=== PATIENT | female | born 1940 | race Caucasian/White ===

== ENCOUNTER → 2016-06-14 | Day surgery (SDC) | payer MEDICARE, BC ==
[~2016-06-14] VITALS: Ht 162.6 cm; Wt 58.5 kg
[~2016-06-14] MED LIST: HYDROCHLOROTH12.5 MG PO; PAXIL40 M1 PO; TYLENOL WITH C1 EACH PO; VALIUM2 MG PO; VOLTAREN75 MG PO
--- NOTE | ~2016-06-14 | OR ---
PATIENT'S NAME: KRISTAN DIALLO [facility] AGE: 76 Y [address] ROOM: [place] [address] LOCATION: [facility] – [place] ADMIT DATE: 06/14/2016 OR/Procedure Report DISCHARGE DATE: FAMILY PHYSICIAN: LIEN LA MD ATTENDING PHYSICIAN: Cruz Merida V SURGEON: Cruz Merida MD LOCKER OPERATOR: BONIFACIO Fairchild. DATE OF PROCEDURE: 06/14/2016 PREOPERATIVE DIAGNOSIS: Malignant melanoma in situ, left cheek. POSTOPERATIVE DIAGNOSIS: Malignant melanoma in situ, left cheek. OPERATION/PROCEDURE: Excision of 6 x 2 cm malignant melanoma in situ, left cheek, with complex closure. ESTIMATED BLOOD LOSS: Minimal. COMPLICATIONS: None. FINDINGS: Frozen section pathology revealed all margins free of disease. DESCRIPTION OF PROCEDURE: The patient was taken to the operating room, laid in supine position, and underwent general endotracheal anesthesia. Head was rotated to the right. Left face was approached. The patient had previous biopsied melanoma in situ of the left cheek. There were several satellite areas of hyperpigmentation. This was marked for initial excision with probable rotation flap reconstruction, however, there was persistent satellite hyperpigmentation superiorly. It was elected to perform a wide local excision with primary closure. A proposed incision line was marked and infiltrated with 2% lidocaine with epinephrine solution. A 6 x 2.5 cm elliptical skin incision was performed using a #15 blade. Subcutaneous tissues were divided using #15 blade. Specimen was removed, marked, and sent for frozen section pathology. Skin edges were undermined using a #15 blade. Frozen section pathology revealed negative margins. Subcutaneous tissues approximated using interrupted 5-0 Vicryl suture. Skin closure was then performed using interrupted 6-0 Ethilon. The patient tolerated the procedure well. Neosporin was applied. The patient was aroused, extubated, and discharged from the operating room to the recovery room in satisfactory condition. CRUZ MERIDA MD PATIENT'S NAME: KRISTAN DIALLO [facility] AGE: 76 Y [address] ROOM: [place] [address] LOCATION: [facility] [place] ADMIT DATE: 06/14/2016 OR/Procedure Report DISCHARGE DATE: FAMILY PHYSICIAN: LIEN LA MD ATTENDING PHYSICIAN: Cruz Merida/jaidenl /[id number] d: 06/[id number] t: 06/21/16 0721, OPERATIVE SUMMARY
== END | disposition disaster alternative care site (69) ==
LOC: GPOC 06-10 13:00 → GSDC 07:00
PROC: 0HB1XZX Excision of Face Skin, External Approach, Diagnostic (ICD-10-PCS; principal; 2016-06-14)
DX: D03.39 Melanoma in situ of other parts of face (principal); E78.5 Hyperlipidemia, unspecified; Z88.1 Allergy status to other antibiotic agents; Z79.899 Other long term (current) drug therapy
CPT/HCPCS: J0171; J2001; J2250; J7120